=== PATIENT | female | born 1995 | race Hispanic/Latino ===

== ENCOUNTER 2022-01-09 08:35 | Outpatient (CLI) | payer OTHER | END 2022-01-09 08:36 | disposition home or self-care (01) | LOC: NAV CT 08:35 | PROVIDERS: ATTEND Family Medicine | DX: R22.2 Localized swelling, mass and lump, trunk (principal); K43.9 Ventral hernia without obstruction or gangrene; K42.9 Umbilical hernia without obstruction or gangrene | CPT/HCPCS: 74176 ==